=== PATIENT | male | born 1995 | race Caucasian/White ===

== ENCOUNTER 2017-07-04 21:34 | Emergency (ER) | payer OTHER, BC ==
[~2017-07-04] VITALS: Ht 167.6 cm; Wt 85.0 kg
[~2017-07-04 21:34] MED LIST: ALBUAER19 INH; SYMIN160 INH
[2017-07-04 21:42] VITALS: TEMP 36.7; Ht 167.6 cm; Wt 85.0 kg
[2017-07-04] MEDS ORDERED: IBUPROFEN 600 MG TAB PO STA (21:50)
--- NOTE | 2017-07-04 22:52 | DIAGNOSTIC IMAGING REPORT ---
RIGHT FOOT MIN 3 VIEWS ROUTINE CLINICAL HISTORY: fall, pain, medial Right pain. Trauma. COMPARISON: None. DISCUSSION: The bones and joint spaces appear intact. There is no evidence of fracture, dislocation or bony disease. There is no evidence for soft tissue swelling. IMPRESSION: Negative study. The above report was generated using voice recognition software. It may contain grammatical, syntax or spelling errors. Electronically signed by: Manav Diaz M.D. 07/04/2017 10:50 PM Dictated Date/Time: 07/04/2017 10:50 PM
--- NOTE | 2017-07-04 22:53 | DIAGNOSTIC IMAGING REPORT ---
RIGHT ANKLE MIN 3 VIEWS ROUTINE CLINICAL HISTORY: fall, pain, medial Right trauma COMPARISON: None. DISCUSSION: No acute bony abnormality. Findings consistent with old fracture of the distal tibia. Ankle mortise is aligned anatomically. Subtalar joint is intact. There is no evidence for soft tissue swelling. IMPRESSION: No acute process. The above report was generated using voice recognition software. It may contain grammatical, syntax or spelling errors. Electronically signed by: Manav Diaz M.D. 07/04/2017 10:51 PM Dictated Date/Time: 07/04/2017 10:51 PM
[2017-07-04 23:18] VITALS: BP 111/60; PULSE 98; O2SAT 98
--- NOTE | 2017-07-05 03:16 | EMERGENCY ROOM VISIT NOTE ---
ED Visit Note First contact with patient: 21:46 CHIEF COMPLAINT: Ankle pain HISTORY OF PRESENT ILLNESS: This 22-year-old patient presents to the emergency department with family after sustaining an injury to the right ankle and foot with a twisting, inversion motion at work when he misstepped off the vehicle. The patient complains of pain along the outside of the ankle. The patient complains pain of the foot. The patient rates the pain as throbbing and 5/10. The patient is barely able to bear weight on the foot. Constant pain, worse with movement, weight bearing, and the dependent position. No knee pain, the patient is able to move their toes. No numbness or weakness of the foot, no laceration. The patient has had a previous fracture to this ankle. The patient has taken nothing for the pain. The patient denies any other injury. REVIEW OF SYSTEMS: A 6 system review of systems was completed with positives and pertinent negatives listed in the HPI. ALLERGIES: Codeine, reviewed MEDICATIONS: Reviewed PMH: Medical Problems: (1) Cerebral palsy Status: Chronic (2) Ulcer Status: Chronic Surgical Problems: (1) H/O brain surgery Status: Resolved SOCIAL HISTORY: No drug use PHYSICAL EXAM: Vital Signs: Reviewed Nurse's notes, vital signs stable. GENERAL : Pleasant male, no acute distress, but appears in pain, well-developed, well- nourished. MENTAL STATUS: Alert, oriented to person place and time, and cooperative. MUSCULOSKELETAL: The right ankle is swollen and tender over the medial malleolus, but the skin is intact and there is no ligamentous instability. There is no fifth metatarsal tenderness. There is tenderness over the rest of the foot. There is no calf or tibia/fibular tenderness. There is no visual deformity. The foot and toes are warm and well-perfused. Dorsalis pedis pulse 2+. Sensation to pain and light touch is intact. Capillary refill less than 2 seconds. EMERGENCY DEPARTMENT COURSE: I examined the patient. Patient is given Motrin and ice pack. X-rays of the right foot and ankle were reviewed by myself and read by radiology and reveal no fracture. Postop shoe was applied to the ankle under my direction and the position was satisfactory. Neurovascular status was rechecked and intact. The patient was instructed on the use of crutches. Patient was advised to follow-up with Worker's Comp. in a few days or here in the ER sooner for severe pain, numbness, tingling, worsening signs or symptoms or as needed. The patient was discharged home in good condition. Differential diagnoses include sprain, strain, fracture, dislocation and other etiologies were considered. DIAGNOSIS: #1 right foot sprain #2 work related injury DISCHARGE INSTRUCTIONS: As below Problem List Medical Problems: (1) Cerebral palsy Status: Chronic (2) Ulcer Status: Chronic Surgical Problems: (1) H/O brain surgery Status: Resolved Current/Historical Medications No Active Prescriptions or Reported Meds Allergies Coded Allergies: Codeine (Verified Allergy, Mild, DIFFICULTY BREATHING, 07/04/17) Sulfa Drugs (Verified Allergy, Mild, SEVERE VOMITTING, 07/04/17) Vital Signs Date Time Temp Pulse Resp B/P (MAP) Pulse Ox O2 Delivery O2 Flow Rate FiO2 07/04/17 23:18 98 16 111/60 98 07/04/17 21:42 36.7 103 16 117/67 99 Room Air Medications Administered Medications (Trade) Dose Ordered Sig/Arjun Route Start Time Stop Time Status Last Admin Dose Admin Ibuprofen (Motrin Tab) 600 mg NOW STAT PO 07/04/17 21:50 07/04/17 21:51 DC 07/04/17 22:13 600 MG Departure Information Impression Primary Impression: Right foot sprain Additional Impression: Work related injury Dispostion Home / Self-Care Condition GOOD Prescriptions No Active Prescriptions or Reported Meds Referrals Tres Castillo D.O. Forms HOME CARE DOCUMENTATION FORM, Work Instructions, Return To Work: 3 days IMPORTANT VISIT INFORMATION Patient Instructions [facility], ED Sprain Foot Additional Instructions Ibuprofen(Motrin, Advil) may be used for fever or pain. Use 600mg every six hours as needed. Take with food. Avoid using more than 2400mg in a 24 hour period. Do not use 2400mg per day for more than three consecutive days without physician direction. Prolonged inappropriate use can lead to stomach upset or ulcers. This medication can be taken if you need to drive, work, or perform activities which may be dangerous when taking narcotic pain medication. (AND/OR) Acetaminophen(Tylenol) may be used for fever or pain. Use 1000mg every six hours as needed. Avoid using more than 3000mg in a 24 hour period. This medication can be taken if you need to drive, work, or perform activities which may be dangerous when taking narcotic pain medication. Ice compresses for 20 minutes at a time four times daily for 2-3 days. Use the crutches as instructed. Rest and elevate your injury. Wear postop shoe for comfort until pain subsides. Do not have it so tight that you cannot feel your foot. Continue current medications. Return to the ER immediately for any numbness, tingling, severe pain, extreme swelling in the extremity or as needed. Call Orthopedics in 3-5 days if symptoms persist to arrange follow up for your injury. Make sure this is approved with your Worker's Comp. as this is a work- related injury. Work Instructions Return To Work: 3 days Problem Qualifiers
== END 2017-07-04 23:18 | disposition home or self-care (01) ==
LOC: C.EDB 21:35 → C.EDD 23:18
DX: S93.401A Sprain of unspecified ligament of right ankle, initial encounter (principal); G80.9 Cerebral palsy, unspecified; Z87.19 Personal history of other diseases of the digestive system; X50.9XXA Other and unspecified overexertion or strenuous movements or postures, initial encounter; Y99.0 Civilian activity done for income or pay

== ENCOUNTER 2019-11-05 23:12 | Inpatient (IN) ==
[2019-11-06 00:10] LABS: Basophils # (auto) 0.04 K/uL (0-0.2); Basophils % (auto) 0.5 %; Eosinophils # (auto) 0.24 K/uL (0-0.5); Eosinophils % (auto) 2.7 %; Hematocrit (blood only) 44.3 % (42-52); Hemoglobin 15.2 g/dL (14.0-18.0); Immature Granulocytes # (auto) 0.01 K/uL (0.00-0.02); Immature Granulocytes % (auto) 0.1 %; Lymphocytes # (auto) 2.37 K/uL (1.2-3.4); Lymphocytes % (auto) 26.9 %; Mean Corpuscular Hemoglobin 29.7 pg (25-34); Mean Corpuscular Hgb Conc 34.3 g/dL (32-36); Mean Corpuscular Volume 86.7 fL (80-100); Mean Platelet Volume 8.8 fL (7.4-10.4); Monocytes % (auto) 4.5 %; Neutrophils # (auto) 5.75 K/uL (1.4-6.5); Neutrophils % (auto) 65.3 %; Platelet Count 186 K/uL (130-400); RDW Coefficient of Variation 12.5 % (11.5-14.5); RDW Standard Deviation 39.7 fL (36.4-46.3); Red Blood Count 5.11 M/uL (4.7-6.1); White Blood Count 8.81 K/uL (4.8-10.8)
[2019-11-06 00:16] LABS: Appearance Urine Clear (Clear); Bilirubin Urine Negative (Negative); Blood Urine Negative (Negative); Color Urine Yellow; Glucose Urine UA Negative (Negative); Ketones Urine 2+ (Negative); Leukocyte Esterase Urine Negative (Negative); Nitrite Urine Negative (Negative); Protein Urine Negative (Negative); Specific Gravity Urine 1.021 (1.000-1.030); Urobilinogen Urine Negative (Negative); pH Urine 5.5 (4.5-7.5)
[2019-11-06 00:29] LABS: BUN Creatinine Ratio 10.9 (10-20); Calcium 9.1 mg/dl (8.5-10.1); Creatinine Clr Calc Pharmacy 102.3 ml/min; Est GFR (African American) 126.8; Est GFR (Non-African American) 109.4; Potassium 3.1 mmol/L (3.5-5.1)
[2019-11-06 00:31] LABS: Amphetamines+Metham, Urine Neg (Neg); Barbiturates, Urine Neg (Neg); Benzodiazepine, Urine Neg (Neg); Cocaine, Urine Neg (Neg); MDMA (Ecstacy), Urine Neg (Neg); Methadone, Urine Neg (Neg); Opiate, Urine Neg (Neg); Phencyclidine, Urine Neg (Neg)
[2019-11-06 00:38] LABS: Acetaminophen < 2 ug/ml (10-30); Salicylate < 1.7 mg/dl (2.8-20)
[2019-11-06] MEDS ORDERED: ALBUTEROL HFA 8 GM INHALER INH ONE (00:38)
[2019-11-06 00:40] LABS: Albumin Globulin Ratio 1.2 (0.9-2); Bilirubin,Total 0.6 mg/dl (0.2-1); Globulin 3.4 gm/dl (2.5-4.0); Thyroid Stimulating Hormone 1.13 uIu/ml (0.300-4.500); Total Protein 7.4 gm/dl (6.4-8.2)
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
[2019-11-06] MEDS ORDERED: NICOTINE POLACRILEX 2 MG GUM MT PRN (03:10)
[2019-11-06] MEDS ORDERED: SODIUM CHLORIDE 0.65% NA SOLN 45 ML (OCEAN) PRN (03:10)
[2019-11-06] MEDS ORDERED: ALUMINUM/MAGNESIUM SUSP 30 ML UDC PO PRN (03:10)
[2019-11-06] MEDS ORDERED: BISMUTH SUBSALICYLATE PER ML OMNICELL CHARGE PO PRN (03:10)
[2019-11-06] MEDS ORDERED: MAGNESIUM HYDROXIDE SUSP 30 ML UDC PO PRN (03:10)
[2019-11-06] MEDS ORDERED: ACETAMINOPHEN 325 MG TAB PO PRN (03:10)
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
[2019-11-06] MEDS: ALBUTEROL HFA 8 GM INHALER INH PRN ×2 (10:59→20:48)
[2019-11-06] MEDS ORDERED: SERTRALINE HCL 50 MG TABLET PO ONE (11:00)
[2019-11-06] MEDS: NICOTINE POLACRILEX 2 MG GUM MT PRN ×2 (11:00→18:47)
[2019-11-07] MEDS: SERTRALINE HCL 50 MG TABLET PO SCH (08:09)
[2019-11-07] MEDS: ALBUTEROL HFA 8 GM INHALER INH PRN (08:09)
--- NOTE | 2019-11-07 10:06 | Psychiatric Progress Note ---
Date of Service November 07, 2019 Impression / Recommendations Impression 24-year-old male admitted voluntarily for inpatient psychiatric treatment on 11/06/2019 due to reports of worsening depression and persistent suicidal ideation lasting for several hours. Patient reports a history of intermittent suicidal ideation for the past 6 years, stating the thoughts tend to occur 2-3 times a month. Patient does admit the severity of the symptoms fluctuates from time to time, but was unable to contract for safety during this most recent episode. Patient does admit that about 1 month ago he had similar symptoms and grabbed a grease press helper knife from his kitchen, stepping outside with intent to use the knife to end his life. At this time, symptoms seem to be most consistent with a diagnosis of dysthymic disorder; however, it is also possible that patient may be underrepresenting the severity of his symptoms. Major depressive disorder certainly remains within the differential. Sertraline was initiated with patient consent - titrated at this time to a dose of 50mg qAM. Pt was informed by police last evening that filed PFA. Current plan is to return home with his mother, who will need to be involved in a family meeting to discuss aftercare and safety planning. Without appropriate aftercare plan, patient remains at high risk of suicide if he is discharged prematurely without adequate medication of risk factors. Inpatient psychiatric treatment is medically necessary at this time. (1) Suicidal ideations: 11/06 - Admitted to a locked inpatient behavioral health unit, on q15 minute safety checks - Encourage medication initiation/adjustments as indicated - Encourage participation in group and recreational therapies - Gather collateral information from outpatient providers - Suggest family meeting to involve outpatient supports in safety planning - Arrange appropriate aftercare 11/07 - Admits to episode of SI last evening when police were on unit to inform of PFA filed by - Still requires safety plan and completion of a family meeting, likely to be with mother (2) Depression: 11/06 - Symptoms reported by patient at this time seem most consistent with a diagnosis of dysthymic disorder; though major depressive disorder remains in differential. Patient is a rather vague historian, and collateral information from would be beneficial to further clarify diagnosis. [id number], he is reporting episodes of depressed mood for about 6 years and is interested in medications to assist with low mood and "anger" - Psychoeducation provided on diagnosis and appropriate treatment recommendations, including recommendation for individual and couple's therapy - Risks, benefits, and potential side effects of sertraline were reviewed. Pt verbalized understanding and is agreeable with initiating the medication. Will order a one-time 25mg dose for today, and increase to 50mg starting tomorrow morning. - Encourage participation in group and recreational programming - Assist with development of healthy and effective coping strategies - Encourage family meeting and refer for outpatient psychiatric services prior to discharge 11/07 - Continue sertraline 50mg daily, denies side effects at this time - Reports increased emotions last evening after being informed of PFA, this situation now changing discharge planning significantly - Involve mother in family meeting; patient likely to live there after discharge - Encourage continued participation in group and recreational programming - Solidify aftercare arrangements (3) Asthma: 11/06 - Continue home prn dosing of albuterol inhaler for shortness of breath (4) Cerebral palsy: 11/06 - Historical diagnosis, not acute changes - Not primary focus of treatment as long-term condition Risk Factors Assessment Do You Have Access To A Gun?: Yes (kept unloaded in "our dresser" ) Protective Factors Assessment Employed: Yes Interval History Identifying Information SYED ROSALES is a 24-year-old M who currently lives in [place] with his and two young children. Pt has a history of antidepressant trial for previous depressive symptoms, but no recent psychiatric treatment. He was admitted on 11/06/19 02:30 on a 201 voluntary commitment for worsening depression and SI. Chief Complaint "Eh, ok. I slept better than I usually do." Review of Systems Notes Constitutional: reports improved sleep last evening Cardiovascular: denied Respiratory: denied Gastrointestinal: denied Neurological: denied Psychiatric: denies symptoms other than stated above Total of at least 10 systems reviewed, pertinent positives as above and in HPI. Sleep Information Total Hours of Sleep: 6.5 Sleep Comments: pt on q-15 minute checks Meal Information Percent Meal Consumed - Breakfast: 75 Percent Meal Consumed - Lunch: 80 Percent Meal Consumed - Dinner: 25 Subjective Subjective Patient was seen & assessed and interval progress reviewed with nursing and social work. Staff reports the patient continues to participate in group and recreational programming, though has not engaged in considerable spontaneous communication with staff. He was visited by police last evening, who informed him that his had filed a PFA. Patient was seen today to assess progress since admission. He provided verbal consent to allow Maggi Prajapati PA-C to observe today's encounter. Patient states that he is feeling "all right" today, and admits that he "slept better than I usually do." Patient was asked if he had any visitors last evening, and begins by discussing his visit with his sister and [id number], which she states went well. Patient was asked about other events throughout the day, and initially simply commented on various group activities. Only with additional questioning did patient eventually revealed "my got a PFA against me." Patient was somewhat smiling while he deliver this news. Patient was asked his thoughts and feelings about the situation, to which she states "I cannot blame her. She is probably scared to be around me, and I do not blame her for wanting to be safe." Patient does admit that he was rather upset to get the news, and did endorse suicidal ideation "right after they told me." He states he struggled with the suicidal thoughts for about 20 minutes, before they "went away on their own." When asked outpatient thinks he might of handled the situation if not in the hospital, he states "will I probably would not be here right now." Patient was asked to further explain this statement, to which she states "I probably would have been so upset that I would have gone over to try to talk to her. That would have landed me in [facility]." Patient denies having homicidal ideation towards his or anyone else when this news was delivered. He does admit that he would like his mother involved in discharge planning at this point, as he is not allowed to contact his . Patient does believe that a court hearing was scheduled for 11/19/2019, otherwise he is unsure of the events to follow this news. Patient denies suicidality presently. He denies any side effects perceived to be related to initiation of sertraline. He states at this point in time "I just got a get better." He denies specific needs from staff at this time. Physical Exam Psychiatric Orientation: alert, oriented x 3 and cooperative (but somewhat guarded) Apperance: appropriately dressed, appropriately groomed and appeared stated age Eye Contact: good eye contact Motor Behavior: steady gait and station CP diagnosis - mildly abnormal posture and ambulates with a steady, but limping gait. There does appear to be some flaccidity of muscle groups on patient's right side. Speech: normal rate/rhythm/volume of speech (brief, vague responses to questions) Affect: + depressed affect and mood congruent with affect Mood: + depressed mood ("alright" and "I just gotta get better.") Thought Process: goal directed thought process, clear/coherent thought process and thought association intact Thought Content: reality based without delusions and + hopelessness Suicidal Thoughts: denies suicidal thoughts (presently, episode of SI last evening after being informed of PFA) Homicidal Thoughts: denies homicidal thoughts Hallucinations: no auditory hallucinations and no visual hallucinations Cognition: attention grossly intact and language grossly intact Insight: + fair insight Judgement: + fair judgement Vital Signs (Past 24 Hours) Last Vital Signs Temp 36.4 C L 11/07/19 06:51 Pulse 65 11/07/19 06:52 Resp 18 11/07/19 06:51 BP 96/66 L 11/07/19 06:52 Pulse Ox 98 11/06/19 03:19 Results & Data Current Inpatient Medications Current Inpatient Medications: Current Inpatient Medications Acetaminophen (Tylenol) 650 mg PO Q4H PRN PRN Reason: Headache or Minor Fever Stop: 12/06/19 03:09 Al Hydrox/Mg Hydrox/Simethicone (Maalox) 30 ml PO Q4H PRN PRN Reason: GI Upset Stop: 12/06/19 03:09 Albuterol (Ventolin Hfa) 2 puffs INH Q4 PRN PRN Reason: Shortness Of Breath Stop: 12/06/19 03:12 Last Admin: 11/07/19 08:09 Dose: 2 puffs Documented by: Bismuth Subsalicylate (Kaopectate) 15 ml PO PRN PRN PRN Reason: Loose Stool Stop: 12/06/19 03:09 Hydroxyzine HCl (Vistaril) 50 mg PO HSZ PRN PRN Reason: Insomnia Stop: 12/06/19 03:09 Hydroxyzine HCl (Vistaril) 25 mg PO Q4H PRN PRN Reason: Anxiety Stop: 12/06/19 03:09 Last Admin: 11/06/19 03:39 Dose: 25 mg Documented by: Magnesium Hydroxide (Milk Of Magnesia) 30 ml PO DAILY PRN PRN Reason: Constipation Stop: 12/06/19 03:09 Nicotine Polacrilex (Nicorette 2mg) 2 piece MT Q2HWA PRN PRN Reason: CRAVINGS Stop: 12/06/19 10:34 Last Admin: 11/06/19 18:47 Dose: 2 piece Documented by: Sertraline HCl (Zoloft) 50 mg PO QAM RYAN Stop: 12/07/19 08:59 Last Admin: 11/07/19 08:09 Dose: 50 mg Documented by: Sodium Chloride (Republic Nasal) 1 - 2 sprays NA PRN PRN PRN Reason: Nasal Dryness/Congestion Stop: 12/06/19 03:09 Mental Health & Subst Abuse Tx Therapist Name of Therapist: Denies/None Ice Plant Operator Name of Ice Plant Operator: Denies/None Post Discharge Appointments Primary Care Physician Name Of Family Doctor: Laurent (1) Cerebral palsy Cerebral palsy type: unspecified type Qualified Code(s): G80.9 - Cerebral palsy, unspecified (2) Depression Depression Type: dysthymia Qualified Code(s): F34.1 - Dysthymic disorder (3) Asthma Asthma complication type: uncomplicated Asthma persistence: persistent Asthma severity: unspecified severity Qualified Code(s): J45.909 - Unspecified asthma, uncomplicated
[2019-11-07] MEDS: NICOTINE POLACRILEX 2 MG GUM MT PRN ×2 (13:10→19:28)
[2019-11-08] MEDS: SERTRALINE HCL 50 MG TABLET PO SCH (09:25)
[2019-11-08] MEDS: NICOTINE POLACRILEX 2 MG GUM MT PRN ×4 (11:29→20:03)
--- NOTE | 2019-11-08 14:43 | Psychiatric Progress Note ---
Date of Service November 08, 2019 Impression / Recommendations Impression 24-year-old male admitted voluntarily for inpatient psychiatric treatment on 11/06/2019 due to reports of worsening depression and persistent suicidal ideation lasting for several hours. Patient reports a history of intermittent suicidal ideation for the past 6 years, stating the thoughts tend to occur 2-3 times a month. Patient does admit the severity of the symptoms fluctuates from time to time, but was unable to contract for safety during this most recent episode. Patient does admit that about 1 month ago he had similar symptoms and grabbed a mobile designer knife from his kitchen, stepping outside with intent to use the knife to end his life. At this time, symptoms seem to be most consistent with a diagnosis of dysthymic disorder; however, it is also possible that patient may be underrepresenting the severity of his symptoms. Major depressive disorder certainly remains within the differential. Sertraline was initiated with patient consent - titrated at this time to a dose of 50mg qAM. filed PFA, and notification of such led to recurrence of SI for the patient. Current plan is to return home with his mother, who was involved in a family meeting to discuss aftercare and safety planning. Aftercare arrangements are pending and until that time, patient remains at high risk of suicide if he is discharged prematurely without adequate medication of risk factors. Inpatient psychiatric treatment is medically necessary at this time. (1) Suicidal ideations: 11/06 - Admitted to a locked inpatient behavioral health unit, on q15 minute safety checks - Encourage medication initiation/adjustments as indicated - Encourage participation in group and recreational therapies - Gather collateral information from outpatient providers - Suggest family meeting to involve outpatient supports in safety planning - Arrange appropriate aftercare 11/07 - Admits to episode of SI last evening when police were on unit to inform of PFA filed by - Still requires safety plan and completion of a family meeting, likely to be with mother 11/08 - Denies SI today - Guns in mother's home reportedly secured, as reviewed in family meeting (2) Depression: 11/06 - Symptoms reported by patient at this time seem most consistent with a diagnosis of dysthymic disorder; though major depressive disorder remains in dif ferential. Patient is a rather vague historian, and collateral information from would be beneficial to further clarify diagnosis. [id number], he is reporting episodes of depressed mood for about 6 years and is interested in medications to assist with low mood and "anger" - Psychoeducation provided on diagnosis and appropriate treatment recommendations, including recommendation for individual and couple's therapy - Risks, benefits, and potential side effects of sertraline were reviewed. Pt verbalized understanding and is agreeable with initiating the medication. Will order a one-time 25mg dose for today, and increase to 50mg starting tomorrow morning. - Encourage participation in group and recreational programming - Assist with development of healthy and effective coping strategies - Encourage family meeting and refer for outpatient psychiatric services prior to discharge 11/07 - Continue sertraline 50mg daily, denies side effects at this time - Reports increased emotions last evening after being informed of PFA, this situation now changing discharge planning significantly - Involve mother in family meeting; patient likely to live there after discharge - Encourage continued participation in group and recreational programming - Solidify aftercare arrangements 11/08 - Continue sertraline 50mg; pt would likely benefit from further titration of the medication, however, is hopeful for discharge soon so will defer to outpatient provider for further adjustments - Reporting improvement in mood - Family meeting with mother today, reportedly will be living with mother on discharge - Referrals to [facility] for outpatient psychiatric prescribers - no solidified appointments at time of today's encounter - Reviewed patient may choose to utilize 25mg prn of hydroxyzine for sleep, as he reports daytime grogginess after receiving 50mg dose last evening (3) Asthma: 11/06 - Continue home prn dosing of albuterol inhaler for shortness of breath (4) Cerebral palsy: 11/06 - Historical diagnosis, not acute changes - Not primary focus of treatment as long-term condition Risk Factors Assessment Do You Have Access To A Gun?: Yes (kept unloaded in "our dresser" ) Protective Factors Assessment Employed: Yes Interval History Identifying Information SYED ROSALES is a 24-year-old M who currently lives in [place] with his and two young children. Pt has a history of antidepressant trial for previous depressive symptoms, but no recent psychiatric treatment. He was admitted on 11/06/19 02:30 on a 201 voluntary commitment for worsening depression and SI. Chief Complaint "Good. I feeling really tired today, could that be the medication?" Review of Systems Notes Constitutional: reports improved sleep last evening, but grogginess throughout the day today (took prn hydroxyzine last evening for sleep) Cardiovascular: denied Respiratory: denied Gastrointestinal: denied Neurological: denied Psychiatric: denies symptoms other than stated above Total of at least 10 systems reviewed, pertinent positives as above and in HPI. Sleep Information Total Hours of Sleep: 6.5 Sleep Comments: pt on q-15 minute checks Meal Information Percent Meal Consumed - Breakfast: 100 Percent Meal Consumed - Lunch: 50 Percent Meal Consumed - Dinner: 100 Subjective Subjective Patient was seen & assessed and interval progress reviewed with treatment team. Staff report the patient has continued to participate in group and recreational programming. He is still planning to live with his mother after discharge. They have a family meeting this morning to discuss aftercare and safety planning. Pt was seen today to assess progress since admission. He states that he is feeling "tired" today, but overall his mood is "good." Patient asks if fatigue is a possible side effect of sertraline, though also admits that he did receive 50 mg of hydroxyzine last evening to assist with sleep. Patient states that the fatigue has been ongoing since awaking this morning. Patient was encouraged to consider utilization of the 25 mg tablet if 50 mg dose is perceived to be too high. Overall, patient states that he is doing well today. He states that his family meeting with his mother went well, and denies any concerns related to living with her on discharge. Patient rates his mood a 6/10 at this time, indicating his mood at time of admission was "probably more like a 2." Reviewed plans for aftercare arrangements; however, patient was informed that no specific appointment times have been confirmed as of yet. Patient repor ts ongoing motivation to "get better and work on things." Patient denies suicidal ideation today. He reports feeling comfortable with treatment team's estimated length of stay of 1 to 2 days. He denies other needs or concerns from staff at this time. Physical Exam Psychiatric Orientation: alert, oriented x 3 and + guarded (but superficially polite and cooperative) Apperance: appropriately dressed, appropriately groomed and appeared stated age Eye Contact: good eye contact Motor Behavior: steady gait and station and no abnormal motor movements (sitting with arms folded for duration of conversation) Speech: normal rate/rhythm/volume of speech (brief responses to questions) Affect: + blunted affect Mood: + depressed mood (reporting improvement overall, rating mood a 6/10 - "good") Thought Process: goal directed thought process and clear/coherent thought process Thought Content: reality based without delusions Suicidal Thoughts: denies suicidal thoughts and denies suicidal intent Homicidal Thoughts: denies homicidal thoughts Hallucinations: no auditory hallucinations and no visual hallucinations Cognition: attention grossly intact and language grossly intact Insight: + limited insight Judgement: + fair judgement Vital Signs (Past 24 Hours) Last Vital Signs Temp 36.4 C L 11/08/19 06:50 Pulse 64 11/08/19 06:51 Resp 18 11/08/19 06:50 BP 107/66 11/08/19 06:51 Pulse Ox 98 11/06/19 03:19 Results & Data Current Inpatient Medications Current Inpatient Medications: Current Inpatient Medications Acetaminophen (Tylenol) 650 mg PO Q4H PRN PRN Reason: Headache or Minor Fever Stop: 12/06/19 03:09 Al Hydrox/Mg Hydrox/Simethicone (Maalox) 30 ml PO Q4H PRN PRN Reason: GI Upset Stop: 12/06/19 03:09 Albuterol (Ventolin Hfa) 2 puffs INH Q4 PRN PRN Reason: Shortness Of Breath Stop: 12/06/19 03:12 Last Admin: 11/07/19 08:09 Dose: 2 puffs Documented by: Bismuth Subsalicylate (Kaopectate) 15 ml PO PRN PRN PRN Reason: Loose Stool Stop: 12/06/19 03:09 Hydroxyzine HCl (Vistaril) 50 mg PO HSZ PRN PRN Reason: Insomnia Stop: 12/06/19 03:09 Last Admin: 11/07/19 22:36 Dose: 50 mg Documented by: Hydroxyzine HCl (Vistaril) 25 mg PO Q4H PRN PRN Reason: Anxiety Stop: 12/06/19 03:09 Last Admin: 11/06/19 03:39 Dose: 25 mg Documented by: Magnesium Hydroxide (Milk Of Magnesia) 30 ml PO DAILY PRN PRN Reason: Constipation Stop: 12/06/19 03:09 Nicotine Polacrilex (Nicorette 2mg) 2 piece MT Q2HWA PRN PRN Reason: CRAVINGS Stop: 12/06/19 10:34 Last Admin: 11/08/19 11:29 Dose: 2 piece Documented by: Sertraline HCl (Zoloft) 50 mg PO QAM RYAN Stop: 12/07/19 08:59 Last Admin: 11/08/19 09:25 Dose: 50 mg Documented by: Sodium Chloride (Carbon Nasal) 1 - 2 sprays NA PRN PRN PRN Reason: Nasal Dryness/Congestion Stop: 12/06/19 03:09 Mental Health & Subst Abuse Tx Psychiatrist Name of Psychiatrist: [facility] Time of Appointment with Psychiatrist: Will schedule after initial intake is completed Psychiatric Appointment Comment: [id number] [facility] or [phone] Therapist Name of Therapist: [facility] Therapist's Therapy Appointment Comment: [phone] [facility] or [phone] [employer] Memorial Marker Designer Name of Memorial Marker Designer: Denies/None Post Discharge Appointments Primary Care Physician Name Of Family Doctor: Liz Mancilla Primary [facility] Time of Appointment with PCP: Please follow up as needed Provider Appointment Comment: [address] Contact Information Discharge Discharge Address: [address] [place] [id number] (1) Cerebral palsy Cerebral palsy type: unspecified type Qualified Code(s): G80.9 - Cerebral palsy, unspecified (2) Depression Depression Type: dysthymia Qualified Code(s): F34.1 - Dysthymic disorder (3) Asthma Asthma complication type: uncomplicated Asthma persistence: persistent Asthma severity: unspecified severity Qualified Code(s): J45.909 - Unspecified asthma, uncomplicated
[2019-11-09] MEDS: NICOTINE POLACRILEX 2 MG GUM MT PRN ×6 (07:10→21:19)
[2019-11-09] MEDS: NICOTINE 14 MG/24 HR PATCH TD SCH (07:43)
[2019-11-09] MEDS: SERTRALINE HCL 50 MG TABLET PO SCH (07:43)
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
[2019-11-10] MEDS: NICOTINE 14 MG/24 HR PATCH TD SCH (07:36)
[2019-11-10] MEDS: NICOTINE POLACRILEX 2 MG GUM MT PRN (07:37)
[2019-11-10] MEDS ORDERED: SERTRALINE HCL 100 MG TABLET PO SCH (09:00)
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
== END 2019-11-10 11:29 | disposition home or self-care (01) | DRG 881 ==
LOC: ED 23:12 → 3S 11-06 02:30